=== PATIENT | female | born 1995 | race Caucasian/White ===

== ENCOUNTER 2018-05-29 13:18 | Emergency (ER) | payer BC ==
--- OUTSIDE RECORDS SUMMARY | 2018-05-29 13:30 | XMS REPORT ---
:1995 Author Organization [facility] Address [address] [place] [address] Care Team Providers Name Role Phone Giovanni Sweeney Unavailable Unavailable PROBLEMS Type Condition ICD9-CM [id number] Onset Condition SNOMED Code Code Code Dates Status Problem Obesity (BMI E66.9 Active 786449441736189 30.0-34.9) Problem Other obesity due E66.09 Active 056779835 to excess calories Problem Costochondritis M94.0 Active 25888876 Problem Body mass index Z68.33 Active 061030830 (BMI) of 33.0-33.9 in adult Problem Sleep disorder G47.9 Active 88228344 ALLERGIES No Information ENCOUNTERS Encounter Location Date Diagnosis [facility] [address] Oct, Sleep disorder G47.9 ; [place] [address] Encounter for counseling regarding contraception Z30.09 ; Other obesity due to excess calories E66.09 and Body mass index (BMI) of 33.0-33.9 in adult Z68.33 [facility] [address] Oct, [place] [address] [facility] [address] Oct, [place] [address] [facility] [address] September, [place] [address] [place] [address] [facility] September, [place] [address] [facility] [address] September, [place] [address] [facility] [address] Aug, [place] [address] [facility] [address] Aug, [place] [address] of vaginal ring hormonal contraceptive device Z30.44 and Sleep disorder G47.9 [place] [address] Oct, [place] [address] [place] [address] Oct, General medical exam Z00.00 [place] [address] and Costochondritis M94.0 IMMUNIZATIONS No Known Immunizations SOCIAL HISTORY Never Assessed REASON FOR REFERRAL FUNCTIONAL STATUS PLAN OF CARE VITAL SIGNS MEDICATIONS No Known Medications PROCEDURES No Known procedures RESULTS No Results REASON FOR VISIT [facility] Insurance Providers [facility] Member Patient Patient Patient Patient Patient Subscriber Subscriber Subscriber Group Insurance Plan Plan Plan Plan ID Relationship Address Phone Name Date of ID Name Date of No Type Insurance Insurance Insurance Coverage to Subscriber Address Phone Name Dates Case [phone] Case self [place] [id number] Management [address] [place] [id number] [facility] BCBS Out [phone] BCBS Out [place] 1995 [id number] [address] [place] [address] MEDICAL (GENERAL) HISTORY Type Description Date Medical History Tore right rotator cuff; no surgery Medical History Irregular periods
--- OUTSIDE RECORDS SUMMARY | 2018-05-29 13:30 | XMS REPORT ---
:1995 Author Organization [facility] Address [address] [place] [address] Care Team Providers Name Role Phone Giovanni Sweeney Unavailable Unavailable PROBLEMS Type Condition ICD9-CM [id number] Onset Condition SNOMED Code Code Code Dates Status Problem Obesity (BMI E66.9 Active [id number] 30.0-34.9) Problem Other obesity due E66.09 Active 780938750 to excess calories Problem Costochondritis M94.0 Active 31492756 Problem Body mass index Z68.33 Active 656415624 (BMI) of 33.0-33.9 in adult Problem Sleep disorder G47.9 Active 53233542 ALLERGIES No Known Allergies ENCOUNTERS Encounter Location Date Diagnosis [place] [address] [place] May, Tinea corporis B35.4 [place] [address] [place] [address] [place] Oct, Sleep disorder G47.9 ; [place] [address] Encounter for counseling regarding contraception Z30.09 ; Other obesity due to excess calories E66.09 and Body mass index (BMI) of 33.0-33.9 in adult Z68.33 [place] [address] Oct, [place] [address] [place] [address] Oct, [place] [address] [place] [address] September, [place] [address] September, [place] [address] [place] [address] September, [place] [address] [place] [address] Aug, [place] [address] [place] [address] Aug, Encounter for surveillance [place] [address] of vaginal ring hormonal contraceptive device Z30.44 and Sleep disorder G47.[address] [place] [address] Oct, [place] [address] [place] [address] Oct, General medical exam Z00.00 [place] [address] and Costochondritis M94.0 IMMUNIZATIONS No Known Immunizations SOCIAL HISTORY Never Assessed REASON FOR REFERRAL FUNCTIONAL STATUS PLAN OF CARE Activity Details Follow Up 3-4 weeks Reason:rash, if not resolved VITAL SIGNS Temperature 98.9 degrees Fahrenheit 2018-05-28 Heart Rate 20 2018-05-28 Weight 170.0 2018-05-28 Height 5'5 in 2018-05-28 BMI 33.20 kg/m2 2018-05-28 Oximetry 96 % 2018-05-28 Blood pressure systolic 124 mm Hg 2018-05-28 Blood pressure diastolic 84 mm Hg 2018-05-28 MEDICATIONS Medication Instructions Dosage Frequency Start End Date Duration Status Date NuvaRing Vaginal for 3 1 ring 90 days Active 0.12-0.015 weeks, then off MG/24HR 1 week NuvaRing Vaginal as 1 ring Aug, day(s) Not-Taking 0.12-0.015 directed 2016 MG/24HR PROCEDURES Procedure Date Ordered Result Body Site BLOOD PRESSURE, MEASURED May 28, 2018 Oxygen saturation results documented and reviewed May 28, 2018 BODY MASS INDEX DOCD May 28, 2018 SMOKING + 2ND HAND ASSESSED May 28, 2018 RESULTS No Results REASON FOR VISIT armpit discoloration, PVP; PHQ2,OFFER FLU SHOT-NC, offer vaccines per above. Kd HERRERA, C/O discoraration on right side armpit, patient noticed this eight months ago. Stated no pain.declines flu vaccine Insurance Providers [facility] Member Patient Patient Patient Patient Patient Subscriber Subscriber Subscriber Group Insurance Plan Plan Plan Plan ID Relationship Address Phone Name Date of ID Name Date of No Type Insurance Insurance Insurance Coverage to Subscriber Address Phone Name Dates BCBS Out [phone] BCBS Out [place] [id number] of Area [facility] [address] [place] [address] Case [phone] Case self [place] [id number] Management [address] [facility] [address] [facility] MEDICAL (GENERAL) HISTORY Type Description Date Medical History Tore right rotator cuff; no surgery Medical History Irregular periods
--- NOTE | 2018-05-29 13:59 | UC ---
Respiratory Complaint HPI - HPI Summary HPI Summary: 22-year-old woman comes in with a chief complaint of shortness of breath and chest pain. About 2 weeks ago patient started with a cough. It gradually progressed to splinting chest pain is primarily in the upper back. She feels short of breath. Activity makes his shortness of breath worse rest makes it better. No fevers no runny nose no sore throat no sputum production. She is on control pills she is not a smoker. Denies any calf pain. When the cough started she had been out sided had fallen that she landed on her hands and knees, not on her back. The chest pain shortness breath is worse with laying down. Decreased with standing up. - History of Current Complaint Chief Complaint: UCRespiratory Stated Complaint: COUGH UPPER BACK/CHEST PAIN Time Seen by Provider: 05/29/18 13:42 Hx Last Menstrual Period: 04/28/18 Pain Intensity: 8 - Allergies/Home Medications Allergies/Adverse Reactions: Allergies Allergy/AdvReac Type Severity Reaction Status Date / Time No Known Allergies Allergy Verified 05/29/18 13:34 Home Medications: Home Medications Etonogest/Eth.estradiol (Nf) [Nuvaring Vaginal Ring] 1 % VAGINAL MONTHLY [History Confirmed 05/29/18] PMH/Surg Hx/FS Hx/Imm Hx Previously Healthy: Yes - Surgical History Surgical History: None - Family History Known Family History: Positive: Non-Contributory - Social History Alcohol Use: Occasionally Substance Use Type: None Smoking Status (MU): Never Smoked Tobacco Review of Systems All Other Systems Reviewed And Are Negative: Yes Constitutional: Positive: Negative Skin: Positive: Negative Eyes: Positive: Negative ENT: Positive: Negative Respiratory: Positive: Shortness Of Breath, Cough Cardiovascular: Positive: Chest Pain Gastrointestinal: Positive: Vomiting Motor: Positive: Negative Neurovascular: Positive: Negative Musculoskeletal: Positive: Negative Neurological: Positive: Negative Psychological: Positive: Negative Is Patient Immunocompromised?: No Physical Exam Triage Information Reviewed: Yes Appearance: Well-Appearing, No Pain Distress, Well-Nourished Vital Signs: Initial Vital Signs Temp 98 F 05/29/18 13:32 Pulse 81 05/29/18 13:32 Resp 18 05/29/18 13:32 BP 134/88 05/29/18 13:32 Pulse Ox 98 05/29/18 13:32 Vital Signs Reviewed: Yes Eye Exam: Normal Eyes: Positive: Conjunctiva Clear ENT: Positive: Pharynx normal, TMs normal Neck exam: Normal Neck: Positive: Supple Respiratory: Positive: Chest non-tender, No respiratory distress, No accessory muscle use, Plerual rub - HEARD LEFT UPPER BACK Cardiovascular: Positive: RRR Abdomen Description: Positive: Nontender, Soft. Negative: CVA Tenderness (R), CVA Tenderness (L) Musculoskeletal Exam: Normal Musculoskeletal: Positive: Strength Intact, ROM Intact, No Edema, Other: - NO CALF TENDERNESS Neurological Exam: Normal Neurological: Positive: Alert, Muscle Tone Normal Psychological Exam: Normal Psychological: Positive: Age Appropriate Behavior Skin Exam: Normal UC Diagnostic Evaluation - Laboratory O2 Sat by Pulse Oximetry: 98 Respiratory Course/Dx - Course Course Of Treatment: Order Information: CHEST PA LAT 2 VWS. Accession Number: [id number]. CPT: 34278. Indication: Chest pain. 2 views of the chest demonstrate no mediastinal shift. Heart is of normal size and. configuration. Lung baig are clear. No pleural fluid, pneumonia or pneumothorax is. noted. IMPRESSION: No active cardiopulmonary disease is noted. . <Electronically signed by Brandee Aguilera MD in OV> 05/29/18 9250. I discussed the x-ray reports with the patient and her . Patient does have a pleuritic rub on examination. Here in clinic unable to adequately evaluate further for pulmonary embolus or cardiac cause of her pain and I recommend been going to the emergency department. The be going by private vehicle. I spoke with Dr. Willson in the emergency department about the patient. - Differential Dx/Diagnosis Provider Diagnosis: Chest pain, Shortness of breath Discharge - Sign-Out/Discharge Documenting (check all that apply): Patient Departure All imaging exams completed and their final reports reviewed: Yes - Discharge Plan Condition: Stable Disposition: HOME-RECOMMEND TO ED Patient Education Materials: Chest Pain (ED), Shortness of Breath (ED) Referrals: [facility] PH[facility]IAN REFERRAL [Outside] Additional Instructions: GO DIRECTLY TO THE EMERGENCY DEPARTMENT FOR FURTHER EVALUATION. - Billing Disposition and Condition Condition: STABLE Disposition: Home-Recommend to ED
[2018-05-29 16:23] VITALS: BP 131/72
== END 2018-05-29 15:45 | disposition home health service (06) ==
LOC: UCEAST 13:18
DX: R07.9 Chest pain, unspecified (principal); R06.02 Shortness of breath
CPT/HCPCS: 71046; 84702; 99202; G0463

== ENCOUNTER 2018-05-29 16:00 | Emergency (ER) | payer BC ==
[2018-05-29 17:39] LABS: ABS Basophils 0.1 10^3/ul (0-0.2); ABS Eosinophils 0.2 10^3/ul (0-0.6); ABS Lymphocytes 2.3 10^3/ul (1.0-4.8); ABS Monocytes 0.6 10^3/ul (0-0.8); ABS Neutrophils 6.2 10^3/ul (1.5-7.7); ABS Nucleated RBC 0 10^3/ul; Eosinophil % 1.7 %; Hematocrit 44 % (35-47); Hemoglobin 14.9 g/dl (12.0-16.0); Lymphocyte % 24.5 %; Mean Corpuscular HGB Conc 34 g/dl (31-36); Mean Corpuscular Hemoglobin 30 pg (27-31); Mean Corpuscular Volume 88 fL (80-97); Mean Platelet Volume 7.3 fL (7.4-10.4); Nucleated Red Blood Cells % 0.1; Platelet Count 322 10^3/ul (150-450); Red Blood Count 4.98 10^6/ul (4.00-5.40); Red Cell Distribution Width 12 % (10.5-15); White Blood Count 9.5 10^3/ul (3.5-10.8)
[2018-05-29 17:57] LABS: Albumin 4.4 g/dL (3.2-5.2); Albumin/Globulin Ratio 1.4 (1-3); BUN/Creatinine Ratio 16.9 (8-20); Calcium 9.6 mg/dL (8.6-10.3); EGFR Non-African American 84.5 (>60); Globulin 3.2 g/dL (2-4); Potassium 4.1 mmol/L (3.5-5.0); Total Bilirubin 0.3 mg/dL (0.2-1.0); Total Protein 7.6 g/dL (6.4-8.9)
[2018-05-29] MEDS ORDERED: guaiFENesin/CODIEN 100MG-10MG* 5 ML UDC PO ONE (22:25)
[2018-05-29] MEDS ORDERED: Ibuprofen TAB* 600 MG PO ONE (22:25)
--- NOTE | 2018-05-29 22:28 | ED ---
Influenza-Like Illness - HPI Summary HPI Summary: Patient complains of cough, chest pain and back pain with cough, SOB, 1 week. Sent to the ED from [facility] for further evaluation. Chest x-ray [facility] negative. Patient on OCPs, sent for further evaluation of SOB. Patient denies fever, BELTRAN, neck stiffness, nasal congestion, sore throat, N/V/D, abdominal pain, change in urine, change in BM, Tenderness, history of smoking, history of blood clots. Medical history is none. - History of Current Complaint Chief Complaint: EDChestWallPain Time Seen by Provider: 05/29/18 21:34 Hx Obtained From: Patient Onset/Duration: Gradual Onset, Lasting Days Severity: Moderate Associated Signs & Symptoms: Cough - Allergy/Home Medications Allergies/Adverse Reactions: Allergies Allergy/AdvReac Type Severity Reaction Status Date / Time No Known Allergies Allergy Verified 05/29/18 13:34 PMH/Surg Hx/FS Hx/Imm Hx Endocrine/Hematology History: Denies: Hx Anticoagulant Therapy Cardiovascular History: Denies: Hx Cardiac Arrest History: Denies: Hx Dialysis Sensory History: Denies: Hx Eye Prosthesis Neurological History: Denies: Hx Developmental Delay Psychiatric History: Denies: Hx Autism Infectious Disease History: No Infectious Disease History: Denies: Traveled Outside the [place] in Last 30 Days - Family History Known Family History: Positive: Non-Contributory - Social History Alcohol Use: Occasionally Substance Use Type: Reports: None Hx Tobacco Use: No Smoking Status (MU): Never Smoked Tobacco Review of Systems Constitutional: Negative Eyes: Negative ENT: Negative Positive: Chest Pain Positive: Shortness Of Breath, Cough Gastrointestinal: Negative Genitourinary: Negative Musculoskeletal: Negative Skin: Negative Neurological: Negative Psychological: Normal All Other Systems Reviewed And Are Negative: Yes Physical Exam Triage Information Reviewed: Yes Vital Signs On Initial Exam: Initial Vitals Temp Pulse Resp BP Pulse Ox 98.7 F 75 16 118/73 100 05/29/18 16:14 05/29/18 16:14 05/29/18 16:14 05/29/18 16:14 05/29/18 16:14 Vital Signs Reviewed: Yes Appearance: Positive: Well-Appearing Skin: Positive: Warm Head/Face: Positive: Normal Head/Face Inspection Eyes: Positive: Normal ENT: Positive: Normal ENT inspection Neck: Positive: Supple Respiratory/Lung Sounds: Positive: Clear to Auscultation Cardiovascular: Positive: Normal Abdomen Description: Positive: Nontender Musculoskeletal: Positive: Normal Neurological: Positive: Normal Psychiatric: Positive: Normal AVPU Assessment: Alert - [place] Coma Scale Best Eye Response: 4 - Spontaneous Best Motor Response: 6 - Obeys Commands Best Verbal Response: 5 - Oriented Coma Scale Total: 15 Diagnostics - Vital Signs Vital Signs Temp Pulse Resp BP Pulse Ox 05/29/18 22:19 98.8 F 05/29/18 22:14 83 120/86 97 05/29/18 22:13 87 97 05/29/18 19:50 98.0 F 88 16 118/79 98 05/29/18 17:59 98.1 F 89 18 148/83 100 05/29/18 16:14 98.7 F 75 16 118/73 100 - Laboratory Lab Results: Lab Results 05/29/18 05/29/18 05/29/18 Range/Units 17:26 17:26 17:26 WBC 9.5 (3.5-10.8) 10^3/ul RBC 4.98 (4.00-5.40) 10^6/ul Hgb 14.9 (12.0-16.0) g/dl Hct 44 (35-47) % MCV 88 (80-97) fL MCH 30 (27-31) pg MCHC 34 (31-36) g/dl RDW 12 (10.5-15) % Plt Count 322 (150-450) 10^3/ul MPV 7.3 L (7.4-10.4) fL Neut % (Auto) 66.1 % Lymph % (Auto) 24.5 % [place] % (Auto) 6.5 % Eos % (Auto) 1.7 % Baso % (Auto) 1.2 % Absolute Neuts (auto) 6.2 (1.5-7.7) 10^3/ul Absolute Lymphs (auto) 2.3 (1.0-4.8) 10^3/ul Absolute Monos (auto) 0.6 (0-0.8) 10^3/ul Absolute Eos (auto) 0.2 (0-0.6) 10^3/ul Absolute Basos (auto) 0.1 (0-0.2) 10^3/ul Absolute Nucleated RBC 0 10^3/ul Nucleated RBC % 0.1 D-Dimer, Quantitative (Less Than 230) ng/mL Sodium 138 (135-145) mmol/L Potassium 4.1 (3.5-5.0) mmol/L Chloride 106 (101-111) mmol/L Carbon Dioxide 26 (22-32) mmol/L Anion Gap 6 (2-11) mmol/L BUN 14 (6-24) mg/dL Creatinine 0.83 (0.51-0.95) mg/dL Est GFR ( Amer) 102.2 (>60) Est GFR (Non-Af Amer) 84.5 (>60) BUN/Creatinine Ratio 16.9 (8-20) Glucose 88 (70-100) mg/dL Lactic Acid 0.8 (0.5-2.0) mmol/L Calcium 9.6 (8.6-10.3) mg/dL Total Bilirubin 0.30 (0.2-1.0) mg/dL AST 14 (13-39) U/L ALT 15 (7-52) U/L Alkaline Phosphatase 73 (34-104) U/L Troponin I 0.00 (<0.04) ng/mL Total Protein 7.6 (6.4-8.9) g/dL Albumin 4.4 (3.2-5.2) g/dL Globulin 3.2 (2-4) g/dL Albumin/Globulin Ratio 1.4 (1-3) 05/29/18 Range/Units 21:41 WBC (3.5-10.8) 10^3/ul RBC (4.00-5.40) 10^6/ul Hgb (12.0-16.0) g/dl Hct (35-47) % MCV (80-97) fL MCH (27-31) pg MCHC (31-36) g/dl RDW (10.5-15) % Plt Count (150-450) 10^3/ul MPV (7.4-10.4) fL Neut % (Auto) % Lymph % (Auto) % [place] % (Auto) % Eos % (Auto) % Baso % (Auto) % Absolute Neuts (auto) (1.5-7.7) 10^3/ul Absolute Lymphs (auto) (1.0-4.8) 10^3/ul Absolute Monos (auto) (0-0.8) 10^3/ul Absolute Eos (auto) (0-0.6) 10^3/ul Absolute Basos (auto) (0-0.2) 10^3/ul Absolute Nucleated RBC 10^3/ul Nucleated RBC % D-Dimer, Quantitative < 200 (Less Than 230) ng/mL Sodium (135-145) mmol/L Potassium (3.5-5.0) mmol/L Chloride (101-111) mmol/L Carbon Dioxide (22-32) mmol/L Anion Gap (2-11) mmol/L BUN (6-24) mg/dL Creatinine (0.51-0.95) mg/dL Est GFR ( Amer) (>60) Est GFR (Non-Af Amer) (>60) BUN/Creatinine Ratio (8-20) Glucose (70-100) mg/dL Lactic Acid (0.5-2.0) mmol/L Calcium (8.6-10.3) mg/dL Total Bilirubin (0.2-1.0) mg/dL AST (13-39) U/L ALT (7-52) U/L Alkaline Phosphatase (34-104) U/L Troponin I (<0.04) ng/mL Total Protein (6.4-8.9) g/dL Albumin (3.2-5.2) g/dL Globulin (2-4) g/dL Albumin/Globulin Ratio (1-3) Result Diagrams: 05/29/18 17:26 05/29/18 17:26 Lab Statement: Any lab studies that have been ordered have been reviewed, and results considered in the medical decision making process. Flu Symptom Course/Dx - Course Course Of Treatment: Patient complains of cough, chest pain and back pain with cough, SOB, 1 week. Sent to the ED from [facility] for further evaluation. Chest x- ray [facility] negative. Patient on OCPs, sent for further evaluation of SOB. Patient denies fever, BELTARN, neck stiffness, nasal congestion, sore throat, N/V/D, abdominal pain, change in urine, change in BM, Tenderness, history of smoking, history of blood clots. Medical history is none. Physical exam unremarkable. Labs normal. D-dimer negative. Chest x-ray negative. EKG unremarkable. Likely viral syndrome. - Diagnoses Provider Diagnoses: Viral syndrome Discharge - Sign-Out/Discharge Documenting (check all that apply): Patient Departure - Discharge Plan Condition: Stable Disposition: HOME Prescriptions: guaiFENesin/CODIEN 100MG-10MG* [Robitussin AC 100Mg-10Mg*] 10 ml PO Q4H PRN 4 Days #240 udc MDD 60ml PRN Reason: Cough Patient Education Materials: Viral Syndrome (ED) Referrals: No Primary Care Phys,NOPCP [Primary Care Provider] - Additional Instructions: Taking cough medicine as prescribed. May take 600 mg of ibuprofen every 6 hours for pain related to cough. Drink plenty of water to maintain hydration. Return to the ED for any new or worsening symptoms - Billing Disposition and Condition Condition: STABLE Disposition: Home
[2018-05-29 23:05] VITALS: BP 120/69
== END 2018-05-29 23:04 | disposition home or self-care (01) ==
LOC: ED 16:00
DX: B34.9 Viral infection, unspecified (principal)
CPT/HCPCS: 36415; 80053; 83605; 84484; 85025; 85379; 93005; 99282; A9270-GY